=== PATIENT | female | born 1965 | race Two or more races ===

== ENCOUNTER 2017-02-23 21:22 | Emergency (ER) | payer BC ==
--- NOTE | ~2017-02-23 | CR109 ---
[facility] A Service of [facility] RADIOLOGY TEXT RESULTS PATIENT: RICHARD BAUTISTA LOCATION: SED : 67 UNIT #: [id number] AGE: [address]: Reanna Chester SEX: F ORDER DR: [id number] [place] [id number] E MR#: [id number] Acc #: [id number] NAME: RICHARD BAUTISTA : 1965 SEX: F STUDY DATE/TIME: 02/23/2017 21:40 UNIT: SED ROOM: STUDY DESCRIPTION: CR Finger 2 View 2nd Rt Attending Physician: Reanna Chester Pa-C Ordering Physician: Reanna Chester Pa-C Primary Care Physician: Rhona Silverio M.D. MEDICAL IMAGING REPORT This report is preliminary unless electronic signature is present. EXAM Right second finger. INDICATION Distal second finger pain. Crush injury. FINDINGS Two views of the right second digit without comparison. There is soft tissue swelling over the distal tuft. There does appear to be a nondisplaced fracture through the tuft. No foreign body. The distal interphalangeal joint is within normal limits. IMPRESSION Suspected nondisplaced distal tuft fracture of the second digit right hand. No foreign body. Dictated by... Yvan Caro M.D. THIS IS AN ELECTRONICALLY VERIFIED REPORT Yvan Caro M.D. at 02/24/2017 1:19 PM RACHEL/janice TD: 02/23/2017 22:24 JOB #: [id number] MEDICAL IMAGING REPORT Page 1 of 1
[2017-02-23] MEDS ORDERED: PRAVACHOL (21:29)
== END 2017-02-23 22:20 ==
LOC: SED 21:22
DX: S62.660B Nondisplaced fracture of distal phalanx of right index finger, initial encounter for open fracture (principal); Z23 Encounter for immunization; W23.0XXA Caught, crushed, jammed, or pinched between moving objects, initial encounter; Y92.89 Other specified places as the place of occurrence of the external cause
CPT/HCPCS: 73140; 90471; 90715; 99284